=== PATIENT | female | born 1960 | race Caucasian/White ===

== ENCOUNTER → 2016-05-26 07:24 | Outpatient (CLI) | payer BC ==
--- NOTE | 2016-06-05 07:17 | EMG ---
PATIENT:HATTIE HARLEY DATE OF SERVICE: 05/26/16 MEDICAL RECORD: [id number] DATE OF : 58 LOCATION: [facility] ADMISSION DATE: REFERRING PHYSICIAN: UNRULY JIMÉNEZ MD INTERPRETING PHYSICIAN: ALECIA SOTELO MD DATE OF SERVICE: 05/26/2016 REFERRED BY: Dr. Unruly Jiménez as an outpatient. DATE OF : 1960. DATE OF EXAMINATION: 05/26/2016. ELECTROMYOGRAPHIC DATA: Electromyographic examination is limited to both upper extremities. In the right upper extremity, right median motor stimulation elicits a compound motor action potential with a distal latency of 3.8 milliseconds, peak amplitude of 6 millivolts, and calculated conduction velocity of 47 meters per second. Right ulnar motor stimulation elicits a compound motor action potential with a distal latency of 2.5 milliseconds, peak amplitude of 8 millivolts, and calculated conduction velocity of 58 meters per second. Right ulnar motor stimulation across the elbow fails to elicit evidence of conduction block at this level. Antidromic right median sensory stimulation elicits a response with a distal latency of 6.4 milliseconds, amplitude of 28 microvolts and calculated conduction velocity of 47 meters per second. Antidromic right ulnar sensory stimulation elicits a response with a distal latency of 3.2 milliseconds, amplitude of 7 microvolts and calculated conduction velocity of 61 meters per second. The right median F wave has a latency of 33 milliseconds. In the left upper extremity, left median motor stimulation elicits a compound motor action potential with a distal latency of 3.6 milliseconds, peak amplitude of 8 millivolts, and calculated conduction velocity of 40 meters per second. Left ulnar motor stimulation elicits a compound motor action potential with a distal latency of 2.8 milliseconds, peak amplitude of 10 millivolts and calculated conduction velocity of 62 meters per second. Left ulnar motor stimulation across the elbow fails to elicit evidence of conduction block at this level. Antidromic left median sensory stimulation elicits a response with a distal latency of 3.8 milliseconds, amplitude of 10 microvolts and calculated conduction velocity of 55 meters per second. Antidromic left ulnar sensory stimulation elicits a response with a distal latency of 3.2 milliseconds, amplitude of 13 microvolts and calculated conduction velocity of 56 meters per second. The left median F wave has a latency of 31 milliseconds. Needle electrode examination is limited to both upper extremities as well. Muscles interrogated include the abductor pollicis brevis, first dorsal interosseous, abductor digiti minimi, pronator teres, biceps brachii, triceps and deltoid. There is no abnormality of insertional activity and no abnormal spontaneous activity is seen in all muscles interrogated. Motor unit potential morphology and the pattern of motor unit potential firing and recruitment is normal in all muscles sampled. INTERPRETATION: Electromyographic examination of both upper extremities is indicative of median neuropathy, at or distal to the wrist on the right, mild to ELECTROMYGRAM/NERVE CONDUCTION [id number] HATTIE HARLEY moderate in degree electrically on the right, consistent with the diagnosis of right carpal tunnel syndrome. There is no electrical evidence of a superimposed cervical radiculopathy or other lesion of the lower motor neuron in either upper extremity at this time. There is no evidence for active denervation. TRANSINT:[id number] Voice Confirmation ID: [id number] DOCUMENT ID: [id number] ALECIA SOTELO MD at [id number] CC: [id number] DICTATION DATE: 05/26/16 0839 PROFESSOR OF LITERACY: 05/26/16 1111 DEP CLI 05/26/16 [facility] [address] [place] [address]
== END | disposition home or self-care (01) ==
LOC: D.CN 07:24
DX: R20.9 Unspecified disturbances of skin sensation (principal)